=== PATIENT | male | born 1970 | race Caucasian/White ===

== ENCOUNTER → 2017-03-04 | Outpatient (CLI) | payer BC ==
[~2017-03-04] MED LIST: TOPI100T20 PO; VERA180C2 PO
--- NOTE | 2017-03-04 17:07 | DIAGNOSTIC IMAGING REPORT ---
KUB CLINICAL HISTORY: N20.0 pain COMPARISON STUDY: CT 04/11/2013 FINDINGS: Bilateral nephrocalcinosis similar compared to the prior study. Nonobstructive bowel pattern. Several pelvic vascular calcifications. IMPRESSION: Bilateral nephrocalcinosis unchanged compared to a prior CT exam. Nonobstructive bowel pattern. The above report was generated using voice recognition software. It may contain grammatical, syntax or spelling errors. Electronically signed by: Nicholas Nieves M.D. 03/04/2017 5:06 PM Dictated Date/Time: 03/04/2017 5:05 PM
== END | disposition home or self-care (01) ==
LOC: C.RAD 16:48
PROVIDERS: ATTEND Nurse Practitioner Adult Health
DX: N20.0 Calculus of kidney (principal)

== ENCOUNTER → 2017-09-09 | Outpatient (CLI) | payer OTHER ==
--- NOTE | 2017-09-09 17:30 | DIAGNOSTIC IMAGING REPORT ---
KUB CLINICAL HISTORY: Nephrolithiasis. FINDINGS: 2 AP supine abdominal radiographs are compared to study dated 03/04/2017 and correlated with abdominal CT dated 04/11/2013. There is a nonobstructed abdominal bowel gas pattern noting mild to moderate colonic fecal retention. No evidence of intraperitoneal free air is seen. A 7 mm nonobstructing calculus versus 2 adjacent calculi projects over the lower pole of the right kidney. An additional punctate nonobstructing calculus projects over the right upper pole. There are least tiny 2 nonobstructing left calculi. There is no radiographic evidence of ureteral stone. The bony structures appear intact. IMPRESSION: Bilateral nephrolithiasis as above. Electronically signed by: Aston Obrien M.D. 09/09/2017 5:28 PM Dictated Date/Time: 09/09/2017 5:27 PM
== END | disposition home or self-care (01) ==
LOC: C.RAD 17:08
PROVIDERS: ATTEND Nurse Practitioner Adult Health
DX: N20.0 Calculus of kidney (principal)